=== PATIENT | male | born 1950 | race Caucasian/White ===

== ENCOUNTER 2017-12-17 14:02 | Emergency (ER) | payer BC, OTHER ==
[2017-12-17 14:25] VITALS: BP 132/91
--- NOTE | 2017-12-17 14:54 | UC ---
UC General HPI - HPI Summary HPI Summary: pt found a tick on his R inner thigh. he removed it but the head remains. he is uncertain how long it was there. no fever, rash or joint pains. 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 - History of Current Complaint Chief Complaint: UCSkin Stated Complaint: TICK Time Seen by Provider: 12/17/17 14:47 Hx Obtained From: Patient Pain Intensity: 0 Aggravating: nothing Alleviating: nothing Associated Signs & Symptoms: Negative: Fever - Allergy/Home Medications Allergies/Adverse Reactions: Allergies Allergy/AdvReac Type Severity Reaction Status Date / Time No Known Allergies Allergy Verified 12/17/17 14:15 PMH/Surg Hx/FS Hx/Imm Hx - Additional Past Medical History Additional PMH: CA - Surgical History Surgical History: Yes Surgery Procedure, Year, and Place: Kidney removal. spleenectomy. partial liver removal. [facility] - Family History Known Family History: Positive: None - Social History Occupation: Retired Lives: With Family Alcohol Use: None Substance Use Type: None Smoking Status (MU): Never Smoked Tobacco - Immunization History Vaccination Up to Date: Yes Review of Systems Constitutional: Negative Skin: Negative Eyes: Negative ENT: Negative Respiratory: Negative Cardiovascular: Negative Gastrointestinal: Negative Genitourinary: Negative Motor: Negative Neurovascular: Negative Musculoskeletal: Negative Neurological: Negative Psychological: Negative Is Patient Immunocompromised?: No All Other Systems Reviewed And Are Negative: Yes Physical Exam Triage Information Reviewed: Yes Appearance: Well-Appearing Vital Signs: Initial Vital Signs Temp 98 F 12/17/17 14:16 Pulse 94 12/17/17 14:16 Resp 20 12/17/17 14:16 BP 132/91 12/17/17 14:16 Pulse Ox 97 12/17/17 14:16 Vital Signs Reviewed: Yes Eyes: Positive: Conjunctiva Clear ENT: Positive: Normal ENT inspection Neck: Positive: Supple, Nontender, No Lymphadenopathy Respiratory: Positive: Lungs clear, Normal breath sounds Cardiovascular: Positive: RRR, No Murmur Abdomen Description: Positive: Nontender, No Organomegaly, Soft Bowel Sounds: Positive: Present Musculoskeletal: Positive: ROM Intact Neurological: Positive: Alert Psychological: Positive: Age Appropriate Behavior Skin Exam: Normal, Other - small abrasion to R inner thigh with tiny black spec where tick removed. no bullseye Course/Dx - Course Course Of Treatment: site cleaned. pt advised spec will work out of skin like a sliver. - Differential Dx - Multi-Symptom Provider Diagnoses: Tick bite R inner thigh Discharge - Sign-Out/Discharge Documenting (check all that apply): Discharge/Admit/Transfer - Discharge Plan Condition: Stable Disposition: HOME Prescriptions: DOXYcycline CAP(*) [DOXYcycline 100MG CAP(*)] 200 mg PO DAILY #2 cap Patient Education Materials: Tick Bite (ED) Referrals: William Jurado DO [Primary Care Provider] - If Needed - Billing Disposition and Condition Condition: STABLE Disposition: HOME
== END 2017-12-17 15:08 | disposition home or self-care (01) ==
LOC: UCCORT 14:02
DX: S70.361A Insect bite (nonvenomous), right thigh, initial encounter (principal); W57.XXXA Bitten or stung by nonvenomous insect and other nonvenomous arthropods, initial encounter; Y93.9 Activity, unspecified; Y92.9 Unspecified place or not applicable
CPT/HCPCS: 99202; G0463

== ENCOUNTER 2018-02-02 06:51 | Day surgery (SDC) | payer BC ==
--- NOTE | 2018-01-16 16:10 | HP ---
AMENDED REPORT NOW INCLUDES COSIGNER DESIGNATION - ESIGNED BEFORE ADJUSTMENT CC: Dr. William Jurado * ADMISSION HISTORY AND PHYSICAL: DATE OF ADMISSION: 02/02/18 ATTENDING SURGEON: Ruben Alaniz MD * (YOLANDA Lyle, dictating). CHIEF COMPLAINT: Right inguinal hernia. HISTORY OF PRESENT ILLNESS: This is a 67-year-old male with complex medical history, who is referred for right inguinal hernia evaluation. The patient states that he has had a hernia in the right groin for at least the past 30 years, during which time it has been largely asymptomatic. However, in the last 6 months or so, he has noticed an increase in size of the bulge in the right groin particularly related to increased activities. At most, he has had some mild discomfort related to the hernia. He has not had anything to suggest incarceration or strangulation. He was seen in the office by Dr. Alaniz on 11/30/17, at which time exam confirmed the presence of a moderate- sized right inguinal hernia, which was soft and reducible. There was no palpable hernia in the left. There was a small asymptomatic umbilical hernia. Dr. Alaniz discussed with him the options including the option of ongoing observation. The patient understands the indications, risks, benefits, and alternatives of surgery. He would like to proceed as scheduled with open repair of right inguinal hernia with mesh. PAST MEDICAL HISTORY: He was treated for a tonsillar cancer (radiation and chemotherapy) in 2005 with some resultant dysphagia and some concerns for aspiration. He was subsequently treated for a renal cell cancer and underwent left nephrectomy in 2011 (laparoscopic converted to open). He has been treated for hepatitis C which is apparently nondetectable at present. He was found to have a small hepatocellular carcinoma and underwent resection of same in 2017 with incidental cholecystectomy in [place]. He has GERD symptoms and likely some degree of aspiration. 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 PAST SURGICAL HISTORY: Previous surgeries as noted above, also bilateral cataract extractions and splenectomy as a child for spherocytosis. CURRENT MEDICATIONS: 1. Ranitidine 75 mg 1 tablet once or twice daily p.r.n. 2. Loratadine 10 mg once daily p.r.n. or Zyrtec once daily p.r.n. 3. Allergy injections every 2 weeks. 4. Patanol 0.1% eyedrops p.r.n. 5. Latanoprost 0.005% 1 drop OU at h.s. (the patient has not actually started). 6. Extra strength Tylenol p.r.n. DRUG ALLERGIES: None known. FAMILY HISTORY: Negative for anesthesia problems, bleeding or clotting disorders. SOCIAL HISTORY: The patient is . 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 He denies use of tobacco other than a very short period when he was younger. He has not had any alcohol in the past 3 to 4 years and previously describes his drinking as moderate. He has not had any recent use of recreational drugs. REVIEW OF SYSTEMS: General: No recent constitutional symptoms or acute illnesses other than described in the HPI. He states that his weight varies give or take 5 pounds, but no significant recent weight loss. Eyes: No recent changes reported. He is prescribed latanoprost for glaucoma, but has not yet started it. Ears, Nose, Throat: Some difficulties with swallowing and excess thickened mucus for which he occasionally uses Mucinex. He is followed by Dr. Mondragon. Cardiovascular: No chest pain, palpitations. He has used metoprolol in the past on a p.r.n. basis for elevated blood pressures, but has not taken it in many months and this in the past has been largely related to anxiety. Respiratory: No recent increased shortness of breath or cough (he does have a baseline cough and some concern for aspiration related to his head and neck cancer). GI: As above. He underwent colonoscopy within recent years with removal of a polyp and recommended followup colonoscopy in 2020. He has also undergone EGD as recently as 2016. : As above. He does have nocturia x3 to 4 each night. He has been prescribed alpha-1 nicole in the past as well as Cialis, but is not currently using either. Endocrine: No diabetes. He states that he has had hypothyroidism in the past and a TSH was drawn this morning for which he will follow up with Dr. Jurado. The remainder of review of systems is negative. PHYSICAL EXAMINATION GENERAL: Somewhat thin, but otherwise well-appearing male in no acute distress. VITAL SIGNS: Height 5 feet 7 inches, weight 140 pounds. Temperature 97.3, blood pressure 118/74, pulse 84 and regular. HEENT: Pupils are equal, round, reactive. EOMs intact. Conjunctivae pink. No scleral icterus. Oropharynx: Teeth in good repair. No intraoral lesions. NECK: No cervical or supraclavicular lymphadenopathy. LUNGS: Clear to auscultation, though with some decrease in breath sounds in the left upper field. No rales or wheezes. HEART: Regular rhythm. No murmur appreciated. ABDOMEN: Multiple healed surgical scars including a large scar in the left subcostal area. There is a small palpable nontender umbilical hernia. There is also the aforementioned right inguinal hernia, which is most prominent in the standing position. GENITALIA: Testes otherwise normal. RECTAL: Not done. BACK: No spinous process or CVA tenderness. EXTREMITIES: No edema. NEUROLOGICAL: Grossly intact. SKIN: Warm and dry without suspicious rashes or lesions. IMPRESSION: Right inguinal hernia. PLAN: Open repair of right inguinal hernia with mesh. YOLANDA LYLE [id number] #: [id number] [facility]
[~2018-02-02 06:51] MED LIST: Metoclopramide TAB* 10 MG PO ONE
[2018-02-02] MEDS ORDERED: Metoclopramide TAB* 10 MG ONE (06:52)
[2018-02-02] MEDS ORDERED: Buffered Lidocaine 0.9% SYRIN* 5 ML/SYR SYRINGE ONE (06:53)
[2018-02-02] MEDS ORDERED: ceFAZolin 2 GM PREMIX (*) 2 GM/50 ML BAG IVPB ONE (06:53)
[2018-02-02] MEDS ORDERED: Propofol* 10 MG/ML 20 ML BTL IV PUSH ONE (06:59)
[2018-02-02] MEDS ORDERED: fentaNYL* 50 MCG/ML 2 ML VIAL (100 MCG VIAL) ONE ×2 (06:59→09:42)
[2018-02-02] MEDS ORDERED: Dexamethasone IV* 4 MG/ML 1 ML (4 MG) ONE (06:59)
[2018-02-02] MEDS ORDERED: KETAMINE HCL* 50 MG/ML 10 ML VIAL ONE (06:59)
[2018-02-02] MEDS ORDERED: Ketorolac INJ* 30 MG/ML 1 ML VIAL ONE (06:59)
[2018-02-02] MEDS ORDERED: Lidocaine 2% PF * 5 ML VIAL ONE (06:59)
[2018-02-02] MEDS ORDERED: Ondansetron ODT TAB* 4 MG ONE (06:59)
[2018-02-02] MEDS ORDERED: Midazolam* 1 MG/ML 5 ML VIAL (5 MG) ONE (07:00)
[2018-02-02] MEDS ORDERED: Bupivacaine 0.5% W/EPI SDV* 10 ML VIAL INJ ONE (07:04)
[2018-02-02] MEDS ORDERED: Lidocaine 1%* 5 ML VIAL ONE (07:05)
[2018-02-02] MEDS ORDERED: Bupivacaine 0.5% SDV PF* 30ML VIAL ONE (07:08)
[2018-02-02] MEDS ORDERED: Lidocaine 1% MPF wEPI 200,000* 30 ML SDV ONE (07:08)
[2018-02-02] MEDS ORDERED: Naloxone* 0.4 MG/ML 1 ML VIAL IV PRN (09:42)
[2018-02-02] MEDS ORDERED: Labetalol IV* 5 MG/ML 20 ML VIAL ONE (09:42)
[2018-02-02] MEDS ORDERED: Ondansetron INJ* 2 MG/ML VIAL IV PRN (09:42)
[2018-02-02] MEDS: fentaNYL* 50 MCG/ML 2 ML VIAL (100 MCG VIAL) IV PRN ×3 (09:45→10:08)
[2018-02-02 11:01] VITALS: BP 154/96
--- NOTE | 2018-02-02 11:31 | OP ---
CC: Ruben Alaniz M.D.; Dr. William Jurado* OPERATIVE NOTE: DATE OF OPERATION: 02/02/18 - SDS DATE OF : 46. SURGEON: Ruben Alaniz M.D. NEWS ANCHOR: Elisha Rivas, medical student. ANESTHESIOLOGIST: Dr. Bae. ANESTHESIA: LMAC anesthesia. PRE-OP DIAGNOSIS: Right inguinal hernia. POST-OP DIAGNOSIS: Right inguinal hernia. OPERATIVE PROCEDURE: Open repair of right inguinal hernia with mesh. DESCRIPTION OF PROCEDURE: The patient was supine on the operative table. After adequate intravenous sedation, compression stockings, and Ry Hugger warmer, and intravenous antibiotics, the groin was clipped and prepped with antiseptic, draped in a sterile fashion. Local infiltrative anesthesia was administered approximately a 2-1/2-inch incision was created and carried down to the external oblique, which was opened in the direction of its fibers. Cord structures were encircled with a [place] drain, tented upward, indirect space hernia was really identified and dissected free and reduced and a cone mesh plug was placed into the internal ring. This was sutured with 2-0 Vicryl in the usual fashion. A second piece was placed over the inguinal floor, sutured to the tubercle. Tails were split, brought around the cord structures, and tacked down laterally. External oblique was closed over top with 3-0 Vicryl, skin with 4-0 Prolene followed by a sterile dressing. He tolerated the procedure well, was awakened and brought to Recovery in good condition. No complications , no drains, no pathologic specimens. Sponge and instrument counts correct. Estimated blood loss 20 mL. [id number] #: [id number] [facility]
[2018-02-02] MEDS ORDERED: Buffered Lidocaine 0.9% SYRIN* 5 ML/SYR SYRINGE INTRADERM ONE (13:09)
== END 2018-02-02 11:03 | disposition home or self-care (01) ==
LOC: OR 06:51
PROVIDERS: ATTEND Surgery
DX: K40.90 Unilateral inguinal hernia, without obstruction or gangrene, not specified as recurrent (principal); I10 Essential (primary) hypertension; R05 Cough; R13.10 Dysphagia, unspecified; Z85.528 Personal history of other malignant neoplasm of kidney; Z85.818 Personal history of malignant neoplasm of other sites of lip, oral cavity, and pharynx; Z85.05 Personal history of malignant neoplasm of liver; K21.9 Gastro-esophageal reflux disease without esophagitis; Z90.81 Acquired absence of spleen
CPT/HCPCS: A9270-GY; C1781; J0690; J1100; J1885; J2001; J2250; J2704; J3010